=== PATIENT | female | born 1960 | race Hispanic/Latino ===

== ENCOUNTER → 2021-12-31 | Outpatient (CLI) | payer SELFPAY ==
[~2021-12-31] MED LIST: GADOBENATE DIMEGLUMINE 1 ML IV ONE
[2021-12-31 14:01] LABS: CREATININE, SERUM 0.77 mg/dL (0.57-1.11)
== END ==
LOC: MRI 12:51
PROVIDERS: ATTEND Surgery
DX: R19.00 Intra-abdominal and pelvic swelling, mass and lump, unspecified site (principal)
CPT/HCPCS: 36415; 72197; 82565; 84520